=== PATIENT | female | born 1955 | race Caucasian/White ===

== ENCOUNTER 2017-05-03 07:37 | Emergency (ER) | payer OTHER ==
[~2017-05-03] VITALS: Ht 152.4 cm; Wt 59.0 kg
--- NOTE | 2017-05-03 07:42 | ED GI/GU/ABDOMINAL COMPLAINT ---
History of Present Illness General Chief Complaint: Abdominal Pain/Flank Pain Stated Complaint: ABD Source: patient, old records, EMS Exam Limitations: no limitations Vital Signs & Intake/Output Vital Signs & Intake/Output Vital Signs Date Time Temp Pulse Resp B/P B/P Pulse O2 O2 Flow FiO2 Mean Ox Delivery Rate 05/03 1329 97.8 72 17 136/74 100 Room Air 05/03 0805 99 Room Air 05/03 0801 98.0 84 16 146/84 99 Room Air Allergies Coded Allergies: No Known Allergies (05/03/17) Reconcile Medications Ciprofloxacin HCl (Cipro) 250 MG TABLET 1 TAB PO BID URINE INFECTION Triage Nurses Notes Reviewed? yes ? N Is pt currently ? No HPI: Patient presents with three-day history of worsening back pain that radiates through to her abdomen. She is also been having nausea vomiting and diarrhea. Symptoms started gradually over 3 days and have been increasing to the point that now the pain is 10 out of 10. The pain is a pressure sensation in her lower back that radiates through to the right side of her abdomen. Pain is similar to prior episodes of her chronic back pain it is just worse than it normally is. Patient has not noticed any hematuria or dysuria. She denies urinary frequency. The pain in her abdomen isn't same pressure sensation from her back. The pain is currently constant and there are no aggravating or mitigating factors. Positive nausea vomiting and diarrhea. She has not noticed any blood in her vomitus or her stool. Patient has also had chills but does not know if she has a fever. Past History Medical History Any Pertinent Medical History? see below for history Gastrointestinal: constipation, GERD Musculoskeletal: chronic back pain, ARTHRITIS Endocrine: hypothyroidism Surgical History Surgical History: appendectomy Psychosocial History Tobacco Use: Quit >30 days ago ETOH Use: denies use Illicit Drug Use: denies illicit drug use Family History Hx Contributory? No Review of Systems Review of Systems Constitutional: Reports: see HPI, chills. EENTM: Reports: no symptoms. Respiratory: Reports: no symptoms. Cardiovascular: Reports: no symptoms. GI: Reports: see HPI, abdominal pain, diarrhea, nausea, vomiting. Genitourinary: Reports: no symptoms. Musculoskeletal: Reports: see HPI, back pain. Skin: Reports: no symptoms. Neurological/Psychological: Reports: no symptoms. Hematologic/Endocrine: Reports: no symptoms. Immunologic/Allergic: Reports: no symptoms. All Other Systems: Reviewed and Negative Physical Exam Physical Exam General Appearance: well developed/nourished, alert, awake, anxious, moderate distress Head: atraumatic, normal appearance Eyes: Bilateral: PERRL, EOMI, other (ANICTERIC). Ears, Nose, Throat, Mouth: hearing grossly normal, DRY MUCOSA Neck: normal inspection, supple, full range of motion Respiratory: normal breath sounds, chest non-tender, no respiratory distress, lungs clear Cardiovascular: regular rate/rhythm, normal peripheral pulses Gastrointestinal: normal bowel sounds, soft, tenderness (DIFFUSE), VOLUNTARY GUARDING, NO REBOUND Back: normal inspection, normal range of motion Extremities: normal range of motion Neurologic/Psych: no motor/sensory deficits, awake, alert, oriented x 3, normal mood/affect Skin: intact, normal color, warm/dry Core Measures ACS in differential dx? No Sepsis Present: No Sepsis Focused Exam Completed? No Progress Differential Diagnosis: AMI, biliary colic, bowel obstruction, cholecystitis, diverticulitis, gastritis, hepatitis, ischemic bowel, inflamm bowel dis, pancreatitis, SBO, UTI/pyelo Plan of Care: Orders Procedure Date/time Status Clear Liquid Diet 05/03 L Active LACTIC ACID 05/03 1149 Complete Add-on Test (ER Only) 05/03 0826 Active EKG 05/03 0826 Active Add-on Test (ER Only) 05/03 0823 Active CULTURE,URINE 05/03 741 Active TROPONIN LEVEL 05/03 741 Complete LACTIC ACID 05/03 741 Complete URINALYSIS 05/03 740 Complete LIPASE 05/03 740 Complete COMPREHENSIVE METABOLIC PANEL 05/03 740 Complete CBC WITHOUT DIFFERENTIAL 05/03 740 Complete AMYLASE 05/03 0641 Complete Laboratory Tests 05/03/17 1306: Lactic Acid 2.3 H 05/03/17 0742: Anion Gap 17 H, Estimated GFR > 60, BUN/Creatinine Ratio 13.3, Glucose 178 H, Lactic Acid 3.7 H, Calcium 10.4 H, Total Bilirubin 2.3 H, AST 30, ALT 35, Alkaline Phosphatase 110, Troponin I < 0.01, Total Protein 7.2, Albumin 4.3, Globulin 2.9, Albumin/Globulin Ratio 1.5, Amylase 33, Lipase 41, CBC w Diff MAN DIFF ORDERED, RBC 5.15, MCV 87.1, MCH 28.7, MCHC 33.0, RDW 13.4, MPV 9.2, Gran % 88.7 H, Lymphocytes % 6.0 L, Monocytes % 4.9, Eosinophils % 0.1, Basophils % 0.3, Absolute Granulocytes 16.2 H, Segmented Neutrophils 89 H, Band Neutrophils 1, Absolute Lymphocytes 1.1 L, Lymphocytes 8 L, Monocytes 2, Absolute Monocytes 0.9 H, Absolute Eosinophils 0, Absolute Basophils 0, Platelet Estimate VERIFIED BY SMEAR, Normocytic RBCs VERIFIED, Normochromic RBCs VERIFIED, Urine Color YEL, Urine Clarity CLDY H, Urine pH 7.0, Ur Specific [place] 1.015, Urine Protein 100 H, Urine Ketones 15 H, Urine Nitrite POS H, Urine Bilirubin NEG, Urine Urobilinogen 1.0, Ur Leukocyte Esterase LARGE H, Ur Microscopic SEDIMENT EXAMINED, Urine RBC >75 H, Urine WBC > 75 H, Ur Epithelial Cells FEW, Urine Bacteria MANY H, Urine Mucus FEW, Urine Hemoglobin LARGE H, Urine Glucose NEG Microbiology 05/03 0742 URINE ROUT: Urine Culture - RECD Diagnostic Imaging: Viewed by Me: CT Scan. Discussed w/RAD: CT Scan. Initial ED EKG: NSR, no ST T wave changes Prior EKG: unchanged Comments: NO RELIEF FROM TORADOL OR ZOFRAN. SHE DID NOTTAKE HER PAIN MEDICATION THIS MORNING SECONDARY TO HER VOMITING. Patient is feeling much better. Lab and CAT scan results have been discussed. Patient will be given clear liquids and if she tolerates she will be able to be discharged Patient tolerated clear liquids without difficulty in the emergency department. Departure Departure Disposition: HOME OR SELF CARE Condition: Stable Clinical Impression Primary Impression: Colitis Secondary Impressions: UTI (urinary tract infection) Referrals: Marci DILLARD,Av Garcia (PCP/Family) Additional Instructions: CLEAR LIQUIDS ONLY UNTIL FEELING BETTER AND THN SLOWLY ADVANCE DIET RETURN IF SYMPTOMS WORSEN OR FOR ANY CONCERNS Departure Forms: Customer Survey General Discharge Information Prescriptions: Current Visit Scripts Ciprofloxacin HCl (Cipro) 1 TAB PO BID #14 TAB Ciprofloxacin HCl (Cipro) 1 TAB PO BID #14 TAB
[2017-05-03 08:00] LABS: ABSOLUTE BASOPHIL COUNT 0 /CUMM (0.0-0.2); ABSOLUTE EOSINOPHIL COUNT 0 /CUMM (0.0-0.7); ABSOLUTE GRANULOCYTE CT 16.2 /CUMM (1.4-6.5); ABSOLUTE LYMPH COUNT 1.1 /CUMM (1.2-3.4); ABSOLUTE MONOCYTE COUNT 0.9 /CUMM (0.10-0.60); BASOPHIL % 0.3 % (0.0-2.0); EOSINOPHIL % 0.1 % (0-5); HEMATOCRIT 44.9 % (37-47); MEAN CORPUSCULAR HGB 28.7 PG (27.0-31.0); MEAN CORPUSCULAR VOLUME 87.1 FL (81.0-99.0); MEAN PLATELET VOLUME 9.2 FL (7.4-10.4); PLATELET COUNT 274 /CUMM (130-400); RBC DISTRIBUTION WIDTH 13.4 % (11.5-14.5); RED BLOOD CELL CT 5.15 /CUMM (4.20-5.40); WHITE BLOOD CELL COUNT 18.3 /CUMM (4.8-10.8)
[2017-05-03 08:12] LABS: GRANULOCYTE % 88.7 % (42.2-75.2)
--- NOTE | 2017-05-03 11:16 | CT SCAN REPORT ---
EXAMINATION: CT ABDOMEN AND PELVIS WITH CONTRAST CLINICAL INFORMATION: Pain, nausea, vomiting, diarrhea. Small bowel obstruction COMPARISON: None TECHNIQUE: Multidetector volumetric imaging was performed of the abdomen and pelvis following IV administration of 98 mL of Optiray 320 intravenous contrast. Sagittal and coronal reformatted images were obtained on the technologist's workstation. FINDINGS: LUNG BASES: The visualized lung bases are unremarkable. LIVER, GALLBLADDER, AND BILIARY TREE: The liver is normal in size, shape, and attenuation. No focal hepatic lesion or biliary ductal dilatation is present. There are hyperdense gallstones in the fundus of the gallbladder. No gallbladder wall thickening or pericholecystic fluid. No biliary ductal dilatation. PANCREAS: Unremarkable. SPLEEN: Unremarkable. ADRENAL GLANDS: Unremarkable. KIDNEYS AND URETERS: The kidneys are normal in size, shape, and attenuation. No hydronephrosis or calculi seen. No perinephric stranding. There is slight prominence of both ureters with subtle possible hyperenhancement of the ureteral liriano. The distal ureters are obscured by streak artifact. BLADDER: The bladder is obscured by streak artifact. There is circumferential bladder wall thickening. There may be hyperenhancement of the bladder wall as well. GASTROINTESTINAL TRACT: Small hiatal hernia. Small bowel is nondilated. There are postsurgical changes in the right lower quadrant. The appendix is not seen, possibly surgically absent. No right lower quadrant inflammatory changes. There is wall thickening of the transverse colon and left colon, most likely due to underdistention. A subtle colitis can't be excluded. No pericolonic fluid or fat stranding. ABDOMINAL WALL: No significant hernia is appreciated. LYMPH NODES: No pathologically enlarged lymphadenopathy. VASCULAR: No abdominal aortic aneurysm. PELVIC VISCERA: Normal CT appearance of the uterus. There is a 2.1 cm left ovarian cyst. OSSEOUS STRUCTURES: Degenerative changes of the lumbar spine. Bilateral hip arthroplasties. IMPRESSION: No evidence of small bowel obstruction. There is wall thickening of the transverse colon and left colon, most likely due to underdistention but a subtle colitis cannot be excluded. There is mild prominence of both ureters with a suggestion of hyperenhancement of the ureteral liriano. The bladder wall appears thickened and hyperenhancing as well. Consider correlation with urinalysis to exclude cystitis and possible ascending infection. Cholelithiasis without evidence of acute cholecystitis. 2.1 cm cyst in the left ovary. Given that the patient is most likely postmenopausal, a 12 month pelvic ultrasound is recommended to confirm stability. FOLLOW-UP RECOMMENDED; SEE ABOVE
[2017-05-03] MEDS ORDERED: CIPRO250 M1 PO (11:47)
[2017-05-03 15:01] VITALS: BP 124/79
== END 2017-05-03 15:01 ==
LOC: ERH 07:37
PROVIDERS: Emergency Medicine
DX: K52.9 Noninfective gastroenteritis and colitis, unspecified (principal); N39.0 Urinary tract infection, site not specified
CPT/HCPCS: 74177; 81001; 87086; 93005; 93010; 96374; 96375; 96376; J0696; J1885; J2405; J2550